=== PATIENT | female | born 1960 | race African-American/Black ===

== ENCOUNTER 2025-04-02 15:53 | Emergency (ER) | payer OTHER ==
[~2025-04-02] VITALS: Ht 162.6 cm; Wt 90.9 kg
[2025-04-02 16:06] VITALS: BP 112/74; PULSE 86; RESP 18; TEMP 98.205296; O2SAT 99
[2025-04-02] MEDS ORDERED: LEVO25TA9 PO ×2 (16:10→16:26)
[2025-04-02] MEDS ORDERED: LEVE-71 PO ×2 (16:10→16:26)
[2025-04-02] MEDS ORDERED: ACETAMINOPHEN 500 MG TABLET PO ONE (16:15)
[2025-04-02 16:36] LABS: APPEARANCE,URINE CLEAR (CLEAR); BILIRUBIN,URINE NEGATIVE (NEGATIVE); COLOR,URINE LIGHT YELLOW (YELLOW); GLUCOSE, URINE (UA) NEGATIVE (NEGATIVE); KETONES,URINE NEGATIVE (NEGATIVE); LEUKOCYTE ESTERASE ,URINE LARGE (NEGATIVE); NITRATE,URINE NEGATIVE (NEGATIVE); OCCULT BLOOD,URINE SMALL (NEGATIVE); PH,URINE 5.5 (5.0-8.0); PROTEIN,URINE NEGATIVE (NEGATIVE); SPECIFIC GRAVITIY, URINE 1.014 (1.003-1.030); UROBILINOGEN,URINE <=1.0 mg/dL (<=1.0)
[2025-04-02] MEDS: LevETIRAcetam 500 MG TABLET PO ONE (16:53)
[2025-04-02 17:01] LABS: WBC,URINE 26-50 /HPF (0-5)
[2025-04-02 17:02] LABS: BACTERIA,URINE Few /HPF (None Seen); SQUAMOUS EPITHELIAL CELL,UR Few /LPF (None Seen)
[2025-04-02] MEDS ORDERED: CEPH-558 PO (17:21)
[2025-04-02] MEDS: CEPHALEXIN MONOHYDRATE 500 MG CAPSULE PO ONE (17:40)
== END 2025-04-02 17:46 | disposition home or self-care (01) ==
LOC: EMS 15:53
DX: N39.0 Urinary tract infection, site not specified (principal); E03.9 Hypothyroidism, unspecified; Z76.0 Encounter for issue of repeat prescription; Z90.89 Acquired absence of other organs; Z88.8 Allergy status to other drugs, medicaments and biological substances; Z79.899 Other long term (current) drug therapy
CPT/HCPCS: 81001; 87077; 87086; 87186; 99283

== ENCOUNTER 2025-04-17 10:49 | Emergency (ER) | payer OTHER ==
[~2025-04-17] VITALS: Ht 160 cm; Wt 86.0 kg
[~2025-04-17 10:49] MED LIST: CEPH-558 PO; LEVE-71 PO; LEVO25TA9 PO
[2025-04-17 11:07] VITALS: BP 119/51; PULSE 68; RESP 18; TEMP 98.1; O2SAT 100
[2025-04-17 11:45] LABS: APPEARANCE,URINE CLEAR (CLEAR); BILIRUBIN,URINE NEGATIVE (NEGATIVE); COLOR,URINE LIGHT YELLOW (YELLOW); GLUCOSE, URINE (UA) NEGATIVE (NEGATIVE); KETONES,URINE NEGATIVE (NEGATIVE); LEUKOCYTE ESTERASE ,URINE LARGE (NEGATIVE); NITRATE,URINE NEGATIVE (NEGATIVE); OCCULT BLOOD,URINE MODERATE (NEGATIVE); PH,URINE 6.5 (5.0-8.0); PROTEIN,URINE NEGATIVE (NEGATIVE); SPECIFIC GRAVITIY, URINE 1.016 (1.003-1.030); UROBILINOGEN,URINE <=1.0 mg/dL (<=1.0)
[2025-04-17 11:54] LABS: BACTERIA,URINE Few /HPF (None Seen); SQUAMOUS EPITHELIAL CELL,UR Few /LPF (None Seen)
[2025-04-17] MEDS: LevETIRAcetam 500 MG TABLET PO ONE (13:07)
[2025-04-17] MEDS: CEPHALEXIN MONOHYDRATE 500 MG CAPSULE PO ONE (13:08)
[2025-04-17] MEDS ORDERED: LEVE-71 PO (13:41)
[2025-04-17] MEDS ORDERED: CEPH-558 PO (13:41)
== END 2025-04-17 14:13 | disposition home or self-care (01) ==
LOC: EMS 10:49
DX: N39.0 Urinary tract infection, site not specified (principal); G40.909 Epilepsy, unspecified, not intractable, without status epilepticus; E03.9 Hypothyroidism, unspecified; Z90.89 Acquired absence of other organs; Z76.0 Encounter for issue of repeat prescription; Z88.8 Allergy status to other drugs, medicaments and biological substances; Z79.899 Other long term (current) drug therapy
CPT/HCPCS: 81001; 87086; 99283

== ENCOUNTER 2025-05-09 13:43 | Emergency (ER) | payer OTHER ==
[~2025-05-09] VITALS: Ht 160 cm; Wt 86.8 kg
[2025-05-09 15:50] LABS: PLATELET COUNT (AUTO) 422 K/uL (150-450); RED BLOOD CELL COUNT(AUTO) 4.29 MIL/uL (4.00-5.20); RED CELL DISTRIBUTION WIDTH 14.7 % (11.5-14.5); WHITE BLOOD COUNT (AUTO) 7.7 K/uL (4.5-11.0)
[2025-05-09 16:05] LABS: CALCIUM, TOTAL 8.9 mg/dL (8.8-10.5); CREATININE 0.77 mg/dL (0.60-1.30); GLOMERULAR FILTR. RATE CALC > 60 mL/min (>60); GLUCOSE,RANDOM 95 mg/dL (70-110); SODIUM SERUM 140 mmol/L (136-145); UREA NITROGEN, BLOOD 6 mg/dL (7-18)
[2025-05-09] MEDS ORDERED: LEVO50 PO (17:14)
[2025-05-09 17:27] VITALS: BP 120/65; PULSE 72; RESP 18; TEMP 98.205296; O2SAT 100
== END 2025-05-09 17:28 | disposition home or self-care (01) ==
LOC: EMS 13:43
DX: N95.2 Postmenopausal atrophic vaginitis (principal); E03.9 Hypothyroidism, unspecified; F12.90 Cannabis use, unspecified, uncomplicated; G40.909 Epilepsy, unspecified, not intractable, without status epilepticus; Z88.8 Allergy status to other drugs, medicaments and biological substances; Z90.89 Acquired absence of other organs; Z87.440 Personal history of urinary (tract) infections; Z79.899 Other long term (current) drug therapy
CPT/HCPCS: 80048; 84443; 85025; 99283

== ENCOUNTER 2025-08-17 05:52 | Emergency (ER) | payer OTHER ==
[~2025-08-17] VITALS: Ht 160 cm; Wt 85.0 kg
[~2025-08-17 05:52] MED LIST changes: +LEVO50 PO
[2025-08-17 06:22] VITALS: TEMP 97.9
[2025-08-17 07:21] LABS: PLATELET COUNT (AUTO) 436 K/uL (150-450); RED BLOOD CELL COUNT(AUTO) 4.34 MIL/uL (4.00-5.20); RED CELL DISTRIBUTION WIDTH 14.7 % (11.5-14.5); WHITE BLOOD COUNT (AUTO) 8.0 K/uL (4.5-11.0)
[2025-08-17 07:35] LABS: CALCIUM, TOTAL 9.0 mg/dL (8.8-10.5); CREATININE 0.64 mg/dL (0.60-1.30); GLOMERULAR FILTR. RATE CALC > 60 mL/min (>60); GLUCOSE,RANDOM 90 mg/dL (70-110); SODIUM SERUM 143 mmol/L (136-145); UREA NITROGEN, BLOOD 10 mg/dL (7-18)
[2025-08-17] MEDS: KETOROLAC TROMETHAMINE 30 MG/ML VIAL IVP ONE (07:47)
[2025-08-17 09:36] VITALS: BP 136/77; PULSE 61; RESP 15; O2SAT 96
== END 2025-08-17 10:00 | disposition home or self-care (01) ==
LOC: EMS 06:06
DX: S16.1XXA Strain of muscle, fascia and tendon at neck level, initial encounter (principal); G40.909 Epilepsy, unspecified, not intractable, without status epilepticus; E03.9 Hypothyroidism, unspecified; F12.90 Cannabis use, unspecified, uncomplicated; Z88.8 Allergy status to other drugs, medicaments and biological substances; Z90.89 Acquired absence of other organs; Z79.899 Other long term (current) drug therapy; X58.XXXA Exposure to other specified factors, initial encounter; Y93.89 Activity, other specified; Y92.89 Other specified places as the place of occurrence of the external cause; Y99.8 Other external cause status
CPT/HCPCS: 99284; 96374; 96375; 80048; 85025; 36415; J0712; J1885; G0482; J7060

== ENCOUNTER 2025-09-03 00:48 | Emergency (ER) | payer OTHER ==
[~2025-09-03] VITALS: Ht 160 cm; Wt 85.0 kg
[~2025-09-03 00:48] MED LIST changes: -CEPH-558 PO
[2025-09-03 00:59] VITALS: BP 129/73; PULSE 89; RESP 18; TEMP 98.2; O2SAT 100
[2025-09-03] MEDS: IBUPROFEN 400 MG TABLET PO ONE (02:24)
[2025-09-03] MEDS: ACETAMINOPHEN 500 MG TABLET PO ONE (02:24)
== END 2025-09-03 05:36 | disposition home or self-care (01) ==
LOC: EMS 00:50
DX: R51.9 Headache, unspecified (principal); E03.9 Hypothyroidism, unspecified; R45.851 Suicidal ideations; G40.909 Epilepsy, unspecified, not intractable, without status epilepticus; F12.90 Cannabis use, unspecified, uncomplicated; Z59.819 Housing instability, housed unspecified; Z90.89 Acquired absence of other organs; Z88.8 Allergy status to other drugs, medicaments and biological substances; Z79.899 Other long term (current) drug therapy
CPT/HCPCS: 99283

== ENCOUNTER 2025-09-20 15:11 | Emergency (ER) | payer OTHER ==
[~2025-09-20] VITALS: Ht 160 cm; Wt 85.0 kg
[2025-09-20 15:24] VITALS: BP 99/65; PULSE 102; RESP 18; TEMP 98.5; O2SAT 97
[2025-09-20] MEDS ORDERED: LEVE-71 PO (15:33)
== END 2025-09-20 16:46 | disposition home or self-care (01) ==
LOC: EMS 15:11
DX: G40.909 Epilepsy, unspecified, not intractable, without status epilepticus (principal); Z76.0 Encounter for issue of repeat prescription; E03.9 Hypothyroidism, unspecified; F12.90 Cannabis use, unspecified, uncomplicated; Z88.8 Allergy status to other drugs, medicaments and biological substances; Z90.89 Acquired absence of other organs; Z79.899 Other long term (current) drug therapy
CPT/HCPCS: 99282; Z7502

== ENCOUNTER 2025-10-01 00:25 | Emergency (ER) | payer OTHER ==
[~2025-10-01] VITALS: Ht 160 cm; Wt 85.9 kg
[2025-10-01 01:32] LABS: PLATELET COUNT (AUTO) 439 K/uL (150-450); RED BLOOD CELL COUNT(AUTO) 4.26 MIL/uL (4.00-5.20); RED CELL DISTRIBUTION WIDTH 14.9 % (11.5-14.5); WHITE BLOOD COUNT (AUTO) 7.1 K/uL (4.5-11.0)
[2025-10-01 01:39] LABS: CALCIUM, TOTAL 9.2 mg/dL (8.8-10.5); CREATININE 0.71 mg/dL (0.60-1.30); GLOMERULAR FILTR. RATE CALC > 60 mL/min (>60); GLUCOSE,RANDOM 96 mg/dL (70-110); SODIUM SERUM 143 mmol/L (136-145); UREA NITROGEN, BLOOD 8 mg/dL (7-18)
[2025-10-01 04:00] VITALS: BP 133/65; PULSE 70; RESP 16; TEMP 97.7; O2SAT 99
[2025-10-01] MEDS: ONDANSETRON 4 MG TABLET PO ONE (04:25)
[2025-10-01] MEDS: ACETAMINOPHEN 325 MG TABLET PO ONE (04:28)
[2025-10-01] MEDS ORDERED: LEVO50 PO (04:35)
[2025-10-01] MEDS ORDERED: LEVE-71 PO (04:35)
[2025-10-01] MEDS: SODIUM CHLORIDE 0.9% 1,000 ML IV ONE (04:50)
[2025-10-01] MEDS: LevETIRAcetam 1,000 MG in DEXTROSE 5%-WATER 100 ML IV ONE (04:50)
[2025-10-01] MEDS: KETOROLAC TROMETHAMINE 30 MG/ML VIAL IVP ONE (04:51)
[2025-10-01] MEDS: ONDANSETRON HCL 4 MG/2 ML VIAL IVP ONE (04:52)
[2025-10-01] MEDS: LEVOTHYROXINE SODIUM 50 MCG TABLET PO ONE (05:00)
== END 2025-10-01 05:37 | disposition home or self-care (01) ==
LOC: EMS 00:26
DX: G40.909 Epilepsy, unspecified, not intractable, without status epilepticus (principal); E03.9 Hypothyroidism, unspecified; F12.90 Cannabis use, unspecified, uncomplicated; Z88.8 Allergy status to other drugs, medicaments and biological substances; Z90.89 Acquired absence of other organs; Z79.899 Other long term (current) drug therapy
CPT/HCPCS: 99284; 80048; 85025; 36415; Q0162; J0712; J7060

== ENCOUNTER 2025-10-08 11:16 | Inpatient (IN) | payer OTHER ==
[~2025-10-08] VITALS: Ht 160 cm; Wt 91.2 kg
[2025-10-08] MEDS: ONDANSETRON HCL 4 MG/2 ML VIAL IVP ONE (13:31)
[2025-10-08] MEDS: LevETIRAcetam 1,000 MG in DEXTROSE 5%-WATER 100 ML IV ONE (13:31)
[2025-10-08 14:00] LABS: PLATELET COUNT (AUTO) 415 K/uL (150-450); RED BLOOD CELL COUNT(AUTO) 4.27 MIL/uL (4.00-5.20); RED CELL DISTRIBUTION WIDTH 14.4 % (11.5-14.5); WHITE BLOOD COUNT (AUTO) 6.9 K/uL (4.5-11.0)
[2025-10-08 14:13] LABS: CALCIUM, TOTAL 9.0 mg/dL (8.8-10.5); CREATININE 0.85 mg/dL (0.60-1.30); GLOMERULAR FILTR. RATE CALC > 60 mL/min (>60); GLUCOSE,RANDOM 89 mg/dL (70-110); SODIUM SERUM 139 mmol/L (136-145); UREA NITROGEN, BLOOD 10 mg/dL (7-18)
[2025-10-08 14:21] LABS: TROPONIN I-HIGH SENSITIVITY 4 ng/L (<51)
[2025-10-08] MEDS ORDERED: ACETAMINOPHEN 325 MG TABLET PO PRN (15:30)
[2025-10-08] MEDS ORDERED: MAGNESIUM HYDROXIDE SUSPENSION 30 ML UDCUP PO PRN (15:30)
[2025-10-08] MEDS ORDERED: LORazepam 2 MG/ML VIAL IVP PRN (15:30)
[2025-10-08] MEDS ORDERED: ONDANSETRON HCL 4 MG/2 ML VIAL IVP PRN (15:30)
[2025-10-08] MEDS ORDERED: ZOLPIDEM TARTRATE 5 MG TABLET PO PRN (15:30)
[2025-10-08 16:02] LABS: APPEARANCE,URINE CLEAR (CLEAR); GLUCOSE, URINE (UA) NEGATIVE (NEGATIVE); LEUKOCYTE ESTERASE ,URINE LARGE (NEGATIVE); NITRATE,URINE NEGATIVE (NEGATIVE); OCCULT BLOOD,URINE SMALL (NEGATIVE); SPECIFIC GRAVITIY, URINE 1.023 (1.003-1.030)
[2025-10-08 16:06] LABS: PH,URINE DRUG SCREEN 5.5 (5.0-8.0)
[2025-10-08 16:11] LABS: ALCOHOL, URINE DRUG SCREEN NEGATIVE (NEGATIVE); AMPHET/METH SCREEN,URINE NEGATIVE (NEGATIVE); BARBITURATE SCREEN, URINE NEGATIVE (NEGATIVE); CANNABINOID SCREEN,URINE POSITIVE (NEGATIVE); COCAINE SCREEN,URINE NEGATIVE (NEGATIVE); METHADONE SCREEN, URINE NEGATIVE (NEGATIVE)
[2025-10-08] MEDS: HEPARIN SODIUM,PORCINE 5,000 UNITS/ML VIAL SQ SCH (16:20)
[2025-10-08] MEDS: SODIUM CHLORIDE 0.9% 1,000 ML IV ONE (16:20)
[2025-10-08 16:21] LABS: SQUAMOUS EPITHELIAL CELL,UR Few /LPF (None Seen)
[2025-10-08 22:25] VITALS: BP 106/79; PULSE 74; RESP 18; TEMP 98.6; O2SAT 100
[2025-10-09] MEDS ORDERED: SODIUM CHLORIDE 0.9% 500 ML IV ONE (00:44)
[2025-10-09 04:16] VITALS: BP 124/79; PULSE 77; RESP 19; TEMP 98.2; O2SAT 98
[2025-10-09] MEDS: LEVOTHYROXINE SODIUM 50 MCG TABLET PO SCH (05:44)
[2025-10-09] MEDS ORDERED: BECL10.62 IH (06:56)
[2025-10-09] MEDS ORDERED: PRAS6.5I VG (06:57)
[2025-10-09 08:00] VITALS: BP 111/62; PULSE 71; RESP 20; TEMP 98.2; O2SAT 99
[2025-10-09] MEDS: FAMOTIDINE 20 MG TABLET PO SCH (09:02)
[2025-10-09] MEDS ORDERED: PROG25PO PO (10:04)
[2025-10-09 19:35] VITALS: BP 110/59; PULSE 85; RESP 18; TEMP 98.1; O2SAT 100
[2025-10-09 23:39] VITALS: PULSE 72; RESP 22; O2SAT 99
[2025-10-10] VITALS (7 sets, daily range): BP systolic 109–123; BP diastolic 54–74; PULSE 57–81; RESP 13–18; TEMP 97.5–98.1; O2SAT 97–100
[2025-10-10] MEDS ORDERED: PROG200C37 PO (11:47)
[2025-10-10] MEDS: CefTRIAXone 1 GM/DEXTROSE 50 ML IV SCH (12:39)
[2025-10-10] MEDS ORDERED: PROGESTERONE, MICRONIZED 100 MG CAPSULE PO SCH (21:00)
[2025-10-11] VITALS (7 sets, daily range): BP systolic 84–122; BP diastolic 41–79; PULSE 60–79; RESP 16–18; TEMP 97.5–99.2; O2SAT 99–100
[2025-10-11 13:03] LABS: PLATELET COUNT (AUTO) 490 K/uL (150-450); RED BLOOD CELL COUNT(AUTO) 4.57 MIL/uL (4.00-5.20); RED CELL DISTRIBUTION WIDTH 14.0 % (11.5-14.5); WHITE BLOOD COUNT (AUTO) 7.3 K/uL (4.5-11.0)
[2025-10-11] MEDS: PHENAZOPYRIDINE HCL 100 MG TABLET PO SCH (13:16)
[2025-10-11 13:48] LABS: CALCIUM, TOTAL 9.2 mg/dL (8.8-10.5); CREATININE 0.72 mg/dL (0.60-1.30); GLOMERULAR FILTR. RATE CALC > 60 mL/min (>60); GLUCOSE,RANDOM 79 mg/dL (70-110); SODIUM SERUM 140 mmol/L (136-145); UREA NITROGEN, BLOOD 8 mg/dL (7-18)
[2025-10-12] VITALS (7 sets, daily range): BP systolic 109–119; BP diastolic 67–77; PULSE 60–83; RESP 15–18; TEMP 97.5–98.1; O2SAT 98–100
[2025-10-13 01:50] VITALS: PULSE 78; RESP 20; O2SAT 98
[2025-10-13 04:54] VITALS: PULSE 65; RESP 16; O2SAT 99
[2025-10-13 04:59] VITALS: BP 113/78; PULSE 73; RESP 17; TEMP 97.9; O2SAT 100
[2025-10-13] MEDS ORDERED: CEPH-558 PO ×2 (11:22→13:52)
[2025-10-13] MEDS ORDERED: FAMO20 PO (11:23)
[2025-10-13] MEDS ORDERED: ACET-2247 PO (11:25)
[2025-10-13] MEDS ORDERED: BECL10.62 IH (12:08)
== END 2025-10-13 15:40 | disposition home or self-care (01) | DRG 249 ==
LOC: EMS 11:17 → EDH 15:22 → 6S 21:58
PROVIDERS: ADMIT Internal Medicine; ATTEND Internal Medicine
DX: A08.4 Viral intestinal infection, unspecified (principal); Z59.01 Sheltered homelessness; N39.0 Urinary tract infection, site not specified; G40.909 Epilepsy, unspecified, not intractable, without status epilepticus; E89.0 Postprocedural hypothyroidism; G47.33 Obstructive sleep apnea (adult) (pediatric); Z91.199 Patient's noncompliance with other medical treatment and regimen due to unspecified reason; Z88.8 Allergy status to other drugs, medicaments and biological substances; Z79.899 Other long term (current) drug therapy
CPT/HCPCS: 71045; 80048; 80307; 81001; 84443; 84484; 85025; 87081; 87086; 93005; 94660; 94760; 97112; 97116; 97163; 97165; 97530; 99285; J0696; J0712; J1644; J2405; J7030; J7040; J7060; 36415-L1; 36415-TC